=== PATIENT | male | born 1955 | race Caucasian/White ===

== ENCOUNTER 2020-05-12 18:08 | Emergency (ER) | payer OTHER, BC ==
[~2020-05-12] VITALS: Ht 175.3 cm; Wt 109.0 kg
[2020-05-12 19:03] VITALS: BP 169/82
[2020-05-12] MEDS: NAPROXEN 500 MG TABLET PO ONE (19:59)
[2020-05-12] MEDS: CYCLOBENZAPRINE 10 MG TABLET. PO ONE (19:59)
--- NOTE | 2020-05-12 20:43 | RAD ---
Exam: Thoracic spine Date: 05/12/2020 7:32 PM CLINICAL HISTORY: Reason: fall / Spl. Instructions: / History: COMPARISON: None available. FINDINGS: AP and lateral/swimmers views of the thoracic spine submitted. There is severe superimposed artifact at the cervical thoracic junction on the lateral view per techniques. Mild multilevel disc height loss. Bulky anterior endplate osteophytes at multiple levels in the mid t horacic spine. Mild rightward curvature of the thoracic spine. Negative compression fracture. Negati ve malalignment. Negative focal paraspinal line deviation/hematoma. IMPRESSION: 1. Multilevel spondylosis as above 2. Negative acute fracture or subluxation. Electronically signed by: Aneudy Nuñez MD (05/12/2020 8:41 PM) GENNY
--- NOTE | 2020-05-12 20:44 | RAD ---
EXAM: PA and Lateral Views of the Chest DATE: 05/12/2020 7:32 PM INDICATION: fall COMPARISON: No Prior FINDINGS: The heart is not enlarged. Mediastinal and hilar contours are normal. Patchy opacities in the infrahilar right lung. No pleural effusion or pneumothorax. IMPRESSION: 1. Patchy opacities in the infrahilar right lung, may represent atelectasis or consolidation. Electronically signed by: Aneudy Nuñez MD (05/12/2020 8:42 PM) GENNY
--- NOTE | 2020-05-12 20:44 | RAD ---
EXAM: AP, lateral and lumbosacral spot views of the lumbar spine DATE: 05/12/2020 7:32 PM INDICATION: Reason: fall / Spl. Instructions: / History: COMPARISON: No Prior FINDINGS: Small ribs at T12. 5 nonrib-bearing lumbar-type vertebral bodies. Vertebral body heights are preserve d. Mild L4-5 and L5-S1 disc height loss. Moderate facet degenerative changes. Vascular calcifications are seen. No spondylolisthesis. Moderate colonic stool content is seen. IMPRESSION: 1. Multilevel spondylosis as above 2. Negative acute fracture or subluxation. Electronically signed by: Aneudy Nuñez MD (05/12/2020 8:42 PM) GENNY
[2020-05-12] MEDS ORDERED: TRAM100T2 PO (20:58)
[2020-05-12] MEDS ORDERED: NAPR-514 PO (20:58)
[2020-05-12] MEDS ORDERED: CYCL5TAB PO (20:58)
--- NOTE | 2020-05-12 20:58 | PHYS DOC ---
Past Medical History Past Medical History: No Pertinent History Past Surgical History: Tonsillectomy, Other Additional Past Surgical Histo: BILATERAL WRIST SURGERIES Smoking Status: Never Smoker Alcohol Use: Rarely Adult General Chief Complaint Chief Complaint: BACK PAIN OR INJURY HPI HPI Patient is a 64 year old male presents emergency department for new onset of back pain after fall. 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 This happened approximate 130 this afternoon. Since that time is noted worsening pain primarily of the right portion of the right paraspinal region and into the right lower buttock. Also notes some stiffness in the neck. Denies any midline tenderness is not her side. Denies any loss conscious. Does also complain of some pain of the left ribs. Review of Systems Review of Systems Constitutional: Denies fever or chills [] Eyes: Denies change in visual acuity, redness, or eye pain [] HENT: Denies nasal congestion or sore throat [] Respiratory: Denies cough or shortness of breath [] Cardiovascular: No additional information not addressed in HPI [] GI: Denies abdominal pain, nausea, vomiting, bloody stools or diarrhea [] : Denies dysuria or hematuria [] Musculoskeletal: Denies back pain or joint pain [] Integument: Denies rash or skin lesions [] Neurologic: Denies headache, focal weakness or sensory changes [] Endocrine: Denies polyuria or polydipsia [] All other systems were reviewed and found to be within normal limits, except as documented in this note. Current Medications Current Medications Current Medications Medications (Trade) Dose Ordered Sig/[facility] Start Time Stop Time Status Last Admin Dose Admin Cyclobenzaprine HCl (Flexeril) 10 mg 1X ONCE 05/12/20 19:15 05/12/20 19:16 DC 05/12/20 19:59 10 MG Naproxen (Naprosyn) 500 mg 1X ONCE 05/12/20 19:15 05/12/20 19:16 DC 05/12/20 19:59 500 MG Allergies Allergies Allergies Coded Allergies Type Severity Reaction Last Updated Verified No Known Drug Allergies 05/12/20 No Physical Exam Physical Exam Constitutional: Well developed, well nourished, no acute distress, non-toxic appearance. [] HENT: Normocephalic, atraumatic, bilateral external ears normal, oropharynx moist, no oral exudates, nose normal. [] Eyes: PERRLA, EOMI, conjunctiva normal, no discharge. [] Neck: Normal range of motion, no tenderness, supple, no stridor. [] Cardiovascular:Heart rate regular rhythm, no murmur [] Lungs & Thorax: Bilateral breath sounds clear to auscultation [] Abdomen: Bowel sounds normal, soft, no tenderness, no masses, no pulsatile masses. [] Skin: Warm, dry, no erythema, no rash. [] Back: Moderate right lower thoracic and upper lumbar paraspinal tenderness without any midline tenderness. No cervical spine tenderness no CVA tenderness. [] Extremities: No tenderness, no cyanosis, no clubbing, ROM intact, no edema. [] Neurologic: Alert and oriented X 3, normal motor function, normal sensory function, no focal deficits noted. [] Psychologic: Affect normal, judgement normal, mood normal. [] Current Patient Data Vital Signs Vital Signs Date Time Temp Pulse Resp B/P (MAP) Pulse Ox O2 Delivery O2 Flow Rate FiO2 05/12/ 19:03 98.0 74 16 169/82 (111) 96 Room Air 98.0 Radiology/Procedures Radiology/Procedures [] Course & Med Decision Making Course & Med Decision Making Pertinent Labs and Imaging studies reviewed. (See chart for details) 61-year-old male presented emergency department new onset of left-sided rib pain as well as right lower back pain and tenderness. Will obtain x-rays of the thoracic and lumbar spine as well as a chest x-ray to make sure there is no evidence of fracture. 20:55 -x-rays negative for any evidence of acute fracture. At this time discharge the patient home with symptomatic relief. I spoken with the patient and her caregivers. I explained the patient's condition, diagnoses and treatment plan based on the information available to me at this time. I have answered the patient and her caregiver's questions and addressed any concerns. The patient and her caregivers have a good understanding of patient's diagnosis, condition and treatment plan as can be expected at this point. Vital signs have been stable. Patient's condition is stable and appropriate for discharge from the emergency department. Patient will pursue further outpatient evaluation with primary care physician or other designated or consulting physician as outlined in the discharge instructions. The patient and/or caregivers are agreeable to this plan of care and follow-up instructions have been explained in detail. The patient and/or caregivers have received these instructions in written form and have expressed an understanding of the discharge instructions. The patient and/or caregivers are aware that any significant change of condition or worsening of symptoms should prompt immediate return to this or the closest emergency department or call to 911. Aimee Disclaimer Aimee Disclaimer This electronic medical record was generated, in whole or in part, using a voice recognition dictation system. Departure Departure Impression: Primary Impression: Back strain Additional Impression: Muscle spasm Disposition: 01 DC HOME SELF CARE/HOMELESS Condition: GOOD Referrals: UNKNOWN PCP NAME (PCP) Patient Instructions: Back Pain, Adult Additional Instructions: EMERGENCY DEPARTMENT GENERAL DISCHARGE INSTRUCTIONS Thank you for coming to [facility] Emergency Department (ED) today and trusting us with you care. We trust that you had a positive experience in our Emergency Department. If you wish to speak to the department management, you may call the Director at [phone]. YOUR FOLLOW UP INSTRUCTIONS ARE FOLLOWS: 1. Do you have a private Doctor? If you do not have a private doctor, please ask for a resource list of physicians or clinics that may be able to assist you with follow up care. 2. The Emergency Physicain has interpreted your x-rays. The X-Ray specialist will also review them. If there is a change in the findings, you will be notified in 48 hours when at all possible. 3. A lab test or culture has been done, your results will be reviewed and you will be notified if you need a change in treatment. ADDITIONAL INSTRUCTIONS AND INFORMATION: 1. Your care today has been supervised by a physician who is specially trained in emergency care. Many problems require more than one evaluation for a complete diagnosis and treatment. We recommend that you schedule your follow up appointment as recommended to ensure complete treatment of you illness or injury. If you are unable to obtain follow up care and continue to have a problem, or if your condition worsens, we recommend that you return to the ED. 2. We are not able to safely determine your condition over the phone nor are we able to give sound medical advice over the phone. For these safety reasons, if you call for medical advice we will ask you to come to the ED for further evaluation. 3. If you have any questions regarding these discharge instructions please call the ED at [phone]. SAFETY INFORMATION: In the interest of safety, wellness, and injury prevention; we encourage you to wear your sealbelt, if you smoke; quite smoking, and we encourage family to use a protective helmet for bicycling and other sporting events that present an increased risk for head injury. IF YOUR SYMPTOMS WORSEN OR NEW SYMPTOMS DEVELOP, OR YOU HAVE CONCERNS ABOUT YOUR CONDITION; OR IF YOUR CONDITION WORSENS WHILE YOU ARE WAITING FOR YOUR FOLLOW UP APPOINTMENT; EITHER CONTACT YOUR PRIMARY CARE DOCTOR, THE PHYSICIAN WHOSE NAME AND NUMBER YOU WERE GIVEN, OR RETURN TO THE ED IMMEDIATELY. Scripts Tramadol Hcl (TRAMADOL HCL) 100 Mg Tbmp.24hr 100 MG PO Q6H PRN for PAIN for 7 Days, #28 TAB 0 Refills Prov: JOSE LUQUE MD 05/12/20 Naproxen (NAPROXEN) 500 Mg Tablet 1 TAB PO BID for pain for 30 Days, #60 TAB 0 Refills Prov: JOSE LUQUE MD 05/12/20 Cyclobenzaprine Hcl (CYCLOBENZAPRINE HCL) 5 Mg Tablet 1 TAB PO TID, #30 TAB Prov: JOSE LUQUE MD 05/12/20 Problem Qualifiers JOSE LUQUE MD May 12, 2020 20:58
== END 2020-05-12 21:09 | disposition home or self-care (01) ==
LOC: ER 18:08
DX: S39.012A Strain of muscle, fascia and tendon of lower back, initial encounter (principal); M62.838 Other muscle spasm; M43.6 Torticollis; W00.0XXA Fall on same level due to ice and snow, initial encounter; Y93.89 Activity, other specified; Y92.89 Other specified places as the place of occurrence of the external cause; Y99.8 Other external cause status
CPT/HCPCS: 71046; 72072; 72100; 99284